=== PATIENT | female | born 1965 | race African-American/Black ===

== ENCOUNTER 2018-05-30 14:21 | Emergency (ER) | payer BC ==
[2018-05-30 14:26] VITALS: BP 140/83
--- NOTE | 2018-05-30 15:01 | ER Document Report ---
HPI - HPI Time Seen by Provider: 05/30/18 14:50 Pain Level: 1 Notes: Patient is a 53-year-old female with no significant past medical history including any history of MRSA or IV drug abuse who presents to the emergency department complaining of a bump to her right scalp that showed up several days ago and has been followed by a bump in the back of her neck over the last 1-2 days. Pt states that she did have work done with her hair just prior to the development of the bump on her scalp. Patient states that she did have some soreness initially, but that has since improved. She is still eating and drink without difficulty. No other recent illness. No other concerns or complaints. Denies any headache, fever, head injury, neck pain, URI, sore throat, chest pain, palpitations, syncope, cough, shortness of breath, wheeze, dyspnea, abdominal pain, nausea/vomiting/diarrhea, urinary retention, dysuria, hematuria. - ROS Systems Reviewed and Negative: Yes All other systems reviewed and negative - REPRODUCTIVE Reproductive: DENIES: : Past Medical History - Social History Smoking Status: Never Smoker Family History: Reviewed & Not Pertinent - Past Medical History Cardiac Medical History: Reports: Hx Hypertension - DUE TO FIBROIDS Denies: Hx Atrial Fibrillation, Hx Congestive Heart Failure, Hx Coronary Artery Disease, Hx Heart Attack, Hx Hypercholesterolemia, Hx Peripheral Vascular Disease, Hx Heart Murmur Neurological Medical History: Denies: Hx Seizures Renal/ Medical History: Denies: Hx Pelvic Inflammatory Disease Malignancy Medical History: Denies: Hx Breast Cancer, Hx Cervical Cancer, Hx Leukemia, Hx Ovarian Cancer Infectious Medical History: Denies: Hx HIV Past Surgical History: Denies: Hx Pacemaker - Immunizations Hx Diphtheria, Pertussis, Tetanus Vaccination: Yes Vertical Provider Document - CONSTITUTIONAL Agree With Documented VS: No - HR 88 during my exam, not tachycardic* Notes: PHYSICAL EXAMINATION: GENERAL: Well-appearing, well-nourished and in no acute distress. HEAD: Atraumatic, normocephalic. EYES: Pupils equal round and reactive to light, extraocular movements intact, sclera anicteric, conjunctiva are normal. ENT: EAC clear b/l. TM's intact b/l without erythema, fluid, or perforation. Nares patent and without discharge. oropharynx clear without exudates. No tonsilar hypertrophy or erythema. Moist mucous membranes. No sinus tenderness. NECK: Normal range of motion. No rigidity/meningismus. LUNGS: Breath sounds clear to auscultation bilaterally and equal. No wheezes rales or rhonchi. HEART: Regular rate and rhythm without murmurs, rubs, gallops. Extremities: No cyanosis, clubbing, or edema b/l. Peripheral pulses 2+. Capillary refill less than 3 seconds. NEUROLOGICAL: Cranial nerves grossly intact. Normal speech, normal gait. Normal sensory, motor exams PSYCH: Normal mood, normal affect. SKIN: there appears to be a mildly erythemic small indurated area just to the scalp behind the rt ear w/o any fluctuance palpated. + mild tenderness without focal point of tenderness. No discharge or streaks. There is also a corresponding posterior cerv chain lymph node palpated. Course - Re-evaluation Re-evalutation: 05/30/18 14:58 Patient is an afebrile, well-hydrated, 53-year-old female who presents the emergency department with a sialitis to her scalp behind her right ear. Vitals are acceptable without significant tachycardia, tachypnea, or hypoxia. PE is otherwise unremarkable. No incision and drainage is warranted at this time. There is no point of maximal tenderness nor any fluctuance noted. She is nontoxic-appearing and is tolerating p.o. without difficulty. Low suspicion for any sepsis, meningitis, SJS, necrotizing fasciitis, or other systemic emergent condition. Patient has an appointment set up on Wednesday for recheck already. I will sent home with prescription for Keflex and Bactrim. Recheck with your PCM this week as scheduled. Return to the ED with any other worsening/concerning symptoms as reviewed. Patient is in agreement. - Vital Signs Vital signs: Temp Pulse Resp BP Pulse Ox 98.9 F 112 H 16 140/83 H 100 05/30/18 14:26 05/30/18 14:26 05/30/18 14:26 05/30/18 14:05/30/18 14:26 Discharge - Discharge Clinical Impression: Infection of scalp Condition: Stable Disposition: HOME, SELF-CARE Instructions: Cephalexin ([facility]), Trimethoprim-Sulfa ([facility]) Additional Instructions: Keep the skin clean Wash with soap and water Tylenol/ibuprofen if needed Triple antibiotic ointment daily Take medication as directed Monitor for any worsening symptoms Recheck with your PCM on Wednesday Return to the ED with any worsening symptoms and/or development of fever, headache, chest pain, palpitations, syncope, shortness of breath, trouble breathing, abdominal pain, n/v/d, abscess, purulent discharge, red streaks, worsening swelling, or other worsening symptoms that are concerning to you. Prescriptions: Cephalexin Monohydrate [Keflex 500 mg Capsule] 500 mg PO TID #30 capsule Sulfamethoxazole/Trimethoprim [Bactrim Ds Tablet] 1 each PO BID #20 tablet Forms: Elevated Blood Pressure Referrals: RAH KOVACS MD [Primary Care Provider] - 06/01/18
== END 2018-05-30 15:10 | disposition home or self-care (01) ==
LOC: ER 14:21
DX: L08.9 Local infection of the skin and subcutaneous tissue, unspecified (principal); R22.1 Localized swelling, mass and lump, neck; Z86.14 Personal history of Methicillin resistant Staphylococcus aureus infection; I10 Essential (primary) hypertension
CPT/HCPCS: 99282

== ENCOUNTER 2019-04-05 07:15 | Day surgery (SDC) | payer BC ==
[~2019-04-05 07:15] MED LIST: CEFAZOLIN SODIUM 2 GM in DEXTROSE 5%-WATER 100 ML IV PRN
[2019-04-05] MEDS ORDERED: GLYCOPYRROLATE 1 MG/5 ML VIAL ONE ×2 (08:47→08:49)
[2019-04-05] MEDS ORDERED: SUCCINYLCHOLINE CHLORIDE INJ 200 MG/10 ML VIAL ONE (08:49)
[2019-04-05] MEDS ORDERED: ONDANSETRON HCL INJ/PF 4 MG/2 ML SDV ONE ×2 (08:49→17:32)
[2019-04-05] MEDS ORDERED: NEOSTIGMINE METHYLSULFATE 10 MG/10 ML VIAL ONE (08:49)
[2019-04-05] MEDS ORDERED: LIDOCAINE 2% INJ-PF (20 MG/ML) 2 ML AMPUL ONE (08:49)
[2019-04-05] MEDS ORDERED: DEXAMETHASONE SOD PHOSPHATE INJ 4 MG/1 ML VIAL ONE (08:49)
[2019-04-05] MEDS ORDERED: ROCURONIUM BROMIDE INJ 50 MG/5 ML VIAL IV ONE (08:49)
[2019-04-05 12:01] LABS: ABSOLUTE BASOPHILS # (AUTO) 0.1 10^3/uL (0.0-0.2); ABSOLUTE LYMPHOCYTES (AUTO) 1.9 10^3/uL (0.5-4.7); ABSOLUTE MONOCYTES (AUTO) 0.4 10^3/uL (0.1-1.4); ABSOLUTE NEUT (AUTO) 4.9 10^3/uL (1.7-8.2); BASOPHILS % (AUTO) 0.8 % (0-2); EOSINOPHILS % (AUTO) 0.6 % (0-6); HEMOGLOBIN 13.1 g/dL (12.0-15.5); MEAN CORPUSCULAR HEMOGLOBIN 29.2 pg (27.0-33.4); MEAN CORPUSCULAR HGB CONC 33.6 g/dL (32.0-36.0); MEAN CORPUSCULAR VOLUME 87 fl (80-97); PLATELET COUNT 265 10^3/uL (150-450); RED BLOOD COUNT 4.48 10^6/uL (3.72-5.28); RED CELL DISTRIBUTION WIDTH 13.6 % (11.5-14.0); SEGMENTED NEUTROPHILS % (AUTO) 67.6 % (42-78); TOTAL CELLS COUNTED % (AUTO) 100 %; WHITE BLOOD COUNT 7.2 10^3/uL (4.0-10.5)
[2019-04-05 12:21] LABS: ANION GAP 9 (5-19); BLOOD UREA NITROGEN 11 mg/dL (7-20); CALCIUM 10.2 mg/dL (8.4-10.2); CARBON DIOXIDE 31 mmol/L (22-30); CHLORIDE 99 mmol/L (98-107); GLUCOSE 89 mg/dL (75-110); POTASSIUM 4.2 mmol/L (3.6-5.0)
[2019-04-05] MEDS ORDERED: FENTANYL CITRATE INJ/PF 250 MCG/5 ML AMPULE ONE (13:14)
[2019-04-05] MEDS ORDERED: PROPOFOL INJ 200 MG/20 ML VIAL IV ONE (13:15)
[2019-04-05] MEDS ORDERED: MIDAZOLAM 2 MG/2 ML INJ ONE (13:15)
[2019-04-05] MEDS ORDERED: EPHEDRINE SULFATE INJ 50 MG/1 ML AMPULE ONE (13:15)
[2019-04-05] MEDS ORDERED: LIDOCAINE 2%/EPINEPHRINE INJ 1.7 ML CARTRIDGE ONE (13:27)
--- NOTE | 2019-04-05 15:47 | Operative Report ---
Operative Report-[facility] Operative Report: Date: 05 April 2019 History: Patient presents with a history of a right thyroid nodule. A fine- needle aspiration biopsy was performed which was [place] class II. That is consistent with a benign process. Patient presents today for a right thyroid lobectomy and isthmusectomy. Informed consent was obtained from the patient Preoperative Diagnosis: 1. Right thyroid nodule, [place] class II cytopathology 2. Multinodular goiter Postoperative Diagnosis: As above Procedure: 1. Right thyroid lobectomy and isthmusectomy 2. Flexible fiber optic nasopharyngolaryngoscope Surgeon: Carlos Laboy MD, FACS. [facility] Assisting surgeon: Abdirahman John DO Anesthesia: General using a laryngeal EMG tube Description of the procedure: After receiving informed consent, the patient was brought to the operating room and play supine on the operating room table. After successful induction and int ubation using a laryngeal EMG tube, a shoulder roll was place to extend the neck. The nerve integrity monitor was calibrated and found to be functioning normally. The planned incision site was marked with a surgical pen and infiltrated with 2% Lidocaine with 1 to 100,000 epinephrine. The patient was then prepped and draped in a sterile fashion. A 15 blade was used to make the incision through the skin, subcutaneous layer and platysma. Using Bovee electrocautery, sub platysmal flaps were elevated superiorly and inferiority. Midline was identified and the strap muscles were . The right sternothyroid muscle was identified and from the thyroid lobe. Attention was then directed superiorly where the superior lobe of the thyroid was carefully from surrounding tissue. The superior vasculature was identified and then sealed and ligated with the Ligasure. A superior parathyroid prospect was identified and preserved. Attention was then directed inferiority, where the inferior lobe of the thyroid was carefully dissected from surrounding tissue. The trachea was a identified medially. The inferior thyroid vascularure was identified and then sealed and ligated using the Ligasure. And inferior parathyroid prospect was identified and preserved. The dissection then continued from a lateral to medial direction moving towards Berrys ligament.The recurrent laryngeal nerve was identified and stimulated using the Prass probe. It was found to be intact and functioning normally.The dissection then continued medially, over the anterior trachea, releasing Berrys ligament. The isthmus was dissected from the anterior tracheal wall and transected in a left paramedian position. Hemostasis was obtained with bipolar electrocautery. The wound was irrigated wi th copious amounts of normal Saline. No bleeding was noted. Surgicel was placed into the thyroid bed. The wound was closed in layers. The strap muscles, platysma and subcutaneous tissue were closed using 4-0 Monocryl. The dermal layer was closed using 4-0 Monocryl. Dermabond, mastisol and steristrips were then applied. A small dressing placed. The patient was then given back to anesthesia who successfully extubated the patient without any complications. A flexible fiber-optic laryngoscope was the. placed through the nasal cavity down to the laryngeal inlet. The vocal cords were visualized and found to be mobile bilaterally. Estimated blood loss: 20 mL Fluids: 800 mL The patient was then transported to the post anesthesia care unit in stable condition with spontaneous respirations.
[2019-04-05] MEDS ORDERED: ACETAMINOPHEN 1,000 MG/100 ML RTUPB IV ONE (16:16)
[2019-04-05] MEDS ORDERED: FENTANYL CITRATE INJ/PF 100 MCG/2 ML AMPUL ONE (16:17)
[2019-04-05] MEDS ORDERED: ONDANSETRON HCL INJ/PF 4 MG/2 ML SDV IV PRN ×2 (16:19→16:44)
[2019-04-05] MEDS ORDERED: PROMETHAZINE HCL INJ 25 MG/1 ML VIAL IV PRN ×2 (16:19)
[2019-04-05] MEDS ORDERED: DIPHENHYDRAMINE HCL 50 MG/ML VIAL IV PRN (16:19)
[2019-04-05] MEDS ORDERED: FENTANYL CITRATE INJ/PF 100 MCG/2 ML AMPUL IV PRN ×3 (16:19)
[2019-04-05] MEDS ORDERED: MEPERIDINE HCL/PF INJ 25 MG/1 ML DISP.SYRIN IV PRN (16:19)
[2019-04-05] MEDS ORDERED: OXYCODONE-ACETAMINOPHEN 5-325 MG TABLET PO PRN ×2 (16:19)
[2019-04-05] MEDS ORDERED: HYDROCODONE/ACETAMINOPHEN 5-325 MG TABLET PO PRN (16:43)
[2019-04-05] MEDS ORDERED: LOSARTAN POTASSIUM 50 MG TABLET PO ONE (17:00)
[2019-04-05] MEDS ORDERED: HYDROCODONE/ACETAMINOPHEN 5-325 MG TABLET ONE (17:32)
[2019-04-05 18:23] VITALS: BP 115/76
== END 2019-04-05 18:30 | disposition home or self-care (01) ==
LOC: OROUT 07:15
PROVIDERS: ATTEND Otolaryngology
DX: E04.2 Nontoxic multinodular goiter (principal); Z79.899 Other long term (current) drug therapy
CPT/HCPCS: 36415; 85025; 80048; 88307 ×2; 60220; 92511; J2250; J3490 ×5; J0690; J1100; J3010 ×2; J2710; J0330; J2405; J7060; J2704; J0131